=== PATIENT | female | born 1995 | race Two or more races ===

== ENCOUNTER 2017-12-17 16:04 | Emergency (ER) | payer OTHER ==
[~2017-12-17] VITALS: Ht 154.9 cm; Wt 59.0 kg
--- NOTE | 2017-12-17 16:10 | NUR ---
PRESENTS TO ER C/O WORSENING VAGINAL BLEEDING STARTED YESTERDAY, A0. STATING 6 WEEKS . A/OX 4, BREATHING EVEN AND UNLABORED. NO SOB, NAD, VITALS STABLE. SAFETY AND COMFORT MEASURES IN PLACE. AWAITING MD ORDERS.
--- NOTE | 2017-12-17 16:24 | NUR ---
US TECH AT BEDSIDE.
[2017-12-17 16:30] LABS: BASOPHILS % (AUTO) 0.3 % (0.0-2.0); EOSINOPHILS % (AUTO) 1.2 % (0.0-6.0); HEMATOCRIT 38 % (33-45); HEMOGLOBIN 12.9 g/dL (11.5-14.8); LYMPHOCYTES # (AUTO) 2.1 /CMM (0.8-4.8); MEAN CORPUSCULAR HGB CONC 34 g/dl (31.0-36.0); MEAN CORPUSCULAR VOLUME 90 fL (82-100); MONOCYTES # (AUTO) 0.5 /CMM (0.1-1.30); NEUTROPHILS % (AUTO) 59.5 % (43.0-81.0); PLATELET COUNT (AUTO) 198 /CMM (150-450); RDW COEFFICIENT OF VARIATION 12.4 (11.5-15.0); RED BLOOD CELL COUNT(AUTO) 4.22 MIL/uL (4.0-5.2); WHITE BLOOD COUNT (AUTO) 6.7 K/uL (4.3-11.0)
[2017-12-17 16:39] LABS: CREATININE 0.8 mg/dL (0.6-1.3); POTASSIUM 3.4 mmol/L (3.5-5.1)
[2017-12-17 16:44] LABS: APPEARANCE,URINE Clear (CLEAR); BILIRUBIN,URINE Negative (NEGATIVE); BLOOD, URINE Moderate Ery/uL (NEGATIVE); COLOR,URINE Yellow (YELLOW); KETONES,URINE Negative (NEGATIVE); LEUKOCYTE ESTERASE ,URINE Negative (NEGATIVE); NITRITE, URINE Negative (NEGATIVE); PROTEIN,URINE Negative (NEGATIVE); UGLUCOSE Negative (NEGATIVE); UROBILINOGEN,URINE 0.2 EU/dL (0.2)
[2017-12-17 16:44] LABS: INR 0.96 (0.85-1.15)
[2017-12-17 16:56] LABS: BACTERIA,URINE Few /HPF (None Seen); SQUAMOUS EPITHELIAL CELL,UR Few /HPF (None Seen); WBC,URINE 0-2 /HPF (0-3)
[2017-12-17 16:57] LABS: RBC,URINE 21-50 /HPF (0-2)
[2017-12-17 17:39] VITALS: BP 114/68
--- NOTE | 2017-12-17 17:44 | NUR ---
Patient discharged to home in stable condition. Written and verbal after care instructions given. Patient verbalizes understanding of instruction.
== END 2017-12-17 17:41 | disposition home or self-care (01) ==
LOC: ER 16:06
DX: O20.0 Threatened abortion (principal)
CPT/HCPCS: 36415; 76856-TC; 80048-TC; 81000-TC; 84702-TC; 85025-TC; 85730-TC; A4606; Z7610

== ENCOUNTER 2017-12-21 12:30 | Emergency (ER) | payer OTHER ==
[~2017-12-21] VITALS: Ht 154.9 cm; Wt 59.0 kg
[2017-12-21 12:30] VITALS: BP 109/62
[2017-12-21 13:40] LABS: BASOPHILS % (AUTO) 0.7 % (0.0-2.0); EOSINOPHILS % (AUTO) 1.4 % (0.0-6.0); HEMATOCRIT 38 % (33-45); HEMOGLOBIN 13.2 g/dL (11.5-14.8); LYMPHOCYTES % (AUTO) 32.1 % (20.0-44.0); MEAN CORPUSCULAR HGB CONC 35 g/dl (31.0-36.0); MEAN CORPUSCULAR VOLUME 90 fL (82-100); MONOCYTES # (AUTO) 0.4 /CMM (0.1-1.30); MONOCYTES % (AUTO) 6.3 % (2.0-12.0); NEUTROPHILS # (AUTO) 3.6 /CMM (1.8-8.9); NEUTROPHILS % (AUTO) 59.5 % (43.0-81.0); PLATELET COUNT (AUTO) 207 /CMM (150-450); RDW COEFFICIENT OF VARIATION 12.7 (11.5-15.0); RED BLOOD CELL COUNT(AUTO) 4.22 MIL/uL (4.0-5.2); WHITE BLOOD COUNT (AUTO) 6.1 K/uL (4.3-11.0)
[2017-12-21 13:54] LABS: INR 0.97 (0.85-1.15)
[2017-12-21 13:58] LABS: CALCIUM, SERUM 9.1 mg/dL (8.5-10.1); CREATININE 0.6 mg/dL (0.6-1.3); POTASSIUM 3.7 mmol/L (3.5-5.1)
[2017-12-21 14:04] LABS: ALBUMIN 3.7 g/dL (3.4-5.0); BILIRUBIN,DIRECT 0.1 mg/dL (0.0-0.2); BILIRUBIN,TOTAL 0.4 mg/dL (0.2-1.0); TOTAL PROTEIN, SERUM 6.9 g/dL (6.4-8.2)
== END 2017-12-21 14:47 | disposition home or self-care (01) ==
LOC: ER 12:34
DX: O20.8 Other hemorrhage in early pregnancy (principal); Z3A.01 Less than 8 weeks gestation of pregnancy
CPT/HCPCS: 36415; 80048; 80076; 84702; 85025; 85730; 99284; A4606; Z7610

== ENCOUNTER 2018-08-23 16:46 | Emergency (ER) | payer OTHER ==
[~2018-08-23] VITALS: Ht 154.9 cm; Wt 66.7 kg
[2018-08-23 16:52] VITALS: BP 108/68
== END 2018-08-23 17:24 | disposition home or self-care (01) ==
LOC: ER 16:46
DX: H60.92 Unspecified otitis externa, left ear (principal)